=== PATIENT | female | born 1945 | race Caucasian/White ===

== ENCOUNTER 2017-11-05 05:50 | Day surgery (SDC) | payer MEDICARE, MEDICAID ==
[2017-11-04 11:44] LABS: BASOPHILS % (AUTO) 0.3 % (0-1); EOSINOPHILS # (AUTO) 0.3 X10'3 (0-0.9); EOSINOPHILS % (AUTO) 3.6 % (0-6); LYMPHOCYTES # (AUTO) 1.2 X10'3 (1.1-4.8); LYMPHOCYTES % (AUTO) 17.1 % (21-51); MEAN CORPUSCULAR HEMOGLOBIN 31.9 PG (27.0-31.0); MEAN CORPUSCULAR HGB CONC 34.1 % (33.0-36.5); MEAN CORPUSCULAR VOLUME 93.6 FL (78-98); MEAN PLATELET VOLUME 10.5 FL (7.4-10.4); MONOCYTES # (AUTO) 0.4 X10'3 (0-0.9); MONOCYTES % (AUTO) 6.1 % (2-12); NEUTROPHILS # (AUTO) 5.1 X10'3 (1.8-7.7); NEUTROPHILS % (AUTO) 72.9 % (42-75); PRE OP HEMATOCRIT 40.2 % (35.0-45.0); PRE OP HEMOGLOBIN 13.7 g/dL (12.0-16.0); PRE OP PLATELET COUNT 158 X10'3 (140-440); RED CELL DISTRIBUTION WIDTH 13.1 % (11.5-14.5)
[2017-11-04 11:57] LABS: ALBUMIN 3.5 G/DL (3.4-5.0); ALKALINE PHOSPHATASE 70 IU/L (46-116); BLOOD UREA NITROGEN 26 MG/DL (7-18); CALCIUM 9.4 MG/DL (8.5-10.1); CHLORIDE 106 MMOL/L (99-107); CREATININE 0.93 MG/DL (0.40-0.90); PRE OP ALT 20 U/L (30-65); PRE OP ANION GAP 8 (8-16); PRE OP AST 14 U/L (10-37); PRE OP BILIRUB, TOTAL 0.5 MG/DL (0.0-1.0); PRE OP GLUCOSE 87 MG/DL (70-104); PRE OP POTASSIUM 4.2 MMOL/L (3.4-5.1); PRE OP SODIUM 141 MMOL/L (135-145); TOTAL CARBON DIOXIDE 26.6 MMOL/L (24-32); eGFR 59 ML/MIN
[2017-11-04 12:01] LABS: CLARITY,URINE CLEAR (Clear); COLOR,URINE YELLOW (Yellow); GLUCOSE, URINE NEGATIVE (Neg); KETONES,URINE NEGATIVE (Neg); LEUKOCYTE ESTERASE ,URINE NEGATIVE (Neg); NITRITES, URINE NEGATIVE (Neg); OCCULT BLOOD,URINE NEGATIVE (Neg); PH,URINE 5.5 (4.8-8.0); PROTEIN,URINE NEGATIVE (Neg); UROBILINOGEN,URINE 0.2 E.U/dL (0.2-1.0)
[2017-11-04 12:07] LABS: UA COLLECTION TYPE CLN CATCH MIDSTREAM
[~2017-11-05] VITALS: Ht 149.9 cm; Wt 76.8 kg
[2017-11-05] VITALS (8 sets, daily range): BP systolic 140–157; BP diastolic 70–89
[~2017-11-05 05:50] MED LIST: ACET-2119 PO; ASPI-529 PO; CARV6.253 PO; CELE-85 PO; CETI10TA18 PO; Cefazolin 2GM/50ML dext iso,osmotic IVPB IV ONE; DOCUMENT DATE & TIME OF BETA-BLOCKER PO ONE; ESOM20CA PO; FISH12002 PO; FURO20TA4 PO; GLUC-133 PO; LOSA50TA3 PO; MULT-933 PO; POTA20TA19 PO; PRAV40TA3 PO; PREG50CA PO; famotidine 20mg tablet PO ONE; ringers solution, lacted 1,000 ML IV SCH
[2017-11-05] MEDS ORDERED: ringers solution, lacted 1,000 ML IV SCH (09:09)
[2017-11-05] MEDS ORDERED: proCHLORperazine 10 MG/2 ml inj IV PRN (09:10)
[2017-11-05] MEDS ORDERED: morphine 4 MG/ML inj SYRINge IV PRN ×2 (09:10)
[2017-11-05] MEDS ORDERED: meperidine/PF 25mg/ml syringe IV PRN ×3 (09:10)
[2017-11-05] MEDS ORDERED: ondansetron/PF 4mg/2ml inj IV PRN (09:10)
[2017-11-05] MEDS ORDERED: ROPIVAcaine 0.5% (5mg/ml) 30ml vial ONE (09:51)
[2017-11-05] MEDS ORDERED: sevoflurane 250ml liquid IH ONE (10:02)
[2017-11-05] MEDS ORDERED: propofol inj 20 ML IV ONE (10:03)
[2017-11-05] MEDS ORDERED: fentaNYL/PF 50MCG/1 ML 2ML syringe ONE (10:03)
[2017-11-05] MEDS ORDERED: midazolam 2 mg/2 ml injection ONE (10:03)
[2017-11-05] MEDS ORDERED: dexamethasone sod phosphate 4mg/ml inj. ONE (10:20)
[2017-11-05] MEDS ORDERED: ondansetron/PF 4mg/2ml inj ONE (10:20)
[2017-11-05] MEDS ORDERED: HYDROcodone/acetaminophen 10/325mg tab PO ONE (11:40)
== END 2017-11-05 12:10 | disposition home or self-care (01) ==
LOC: PAS 05:50
PROVIDERS: ATTEND Surgery
DX: K64.8 Other hemorrhoids (principal); K64.4 Residual hemorrhoidal skin tags; I11.0 Hypertensive heart disease with heart failure; I50.9 Heart failure, unspecified; I20.8 Other forms of angina pectoris; G47.33 Obstructive sleep apnea (adult) (pediatric); E66.9 Obesity, unspecified; K21.9 Gastro-esophageal reflux disease without esophagitis; M19.90 Unspecified osteoarthritis, unspecified site; I48.91 Unspecified atrial fibrillation; Z91.048 Other nonmedicinal substance allergy status; Z72.89 Other problems related to lifestyle; Z88.3 Allergy status to other anti-infective agents; Z98.51 Tubal ligation status; Z68.34 Body mass index [BMI] 34.0-34.9, adult; Z90.49 Acquired absence of other specified parts of digestive tract; Z98.41 Cataract extraction status, right eye; Z98.42 Cataract extraction status, left eye; Z87.891 Personal history of nicotine dependence; Z88.5 Allergy status to narcotic agent; Z88.6 Allergy status to analgesic agent; Z79.82 Long term (current) use of aspirin; Z91.041 Radiographic dye allergy status; Z87.442 Personal history of urinary calculi; Z79.891 Long term (current) use of opiate analgesic; Z79.899 Other long term (current) drug therapy; Z88.8 Allergy status to other drugs, medicaments and biological substances; Z98.890 Other specified postprocedural states
CPT/HCPCS: 36415; 45990; 46260; 71046; 80053; 81003; 85025; 93005; A6224; A6449; J0690; J1100; J2250; J2405; J2704; J2795; J3010; J7120; 88304; A7000

== ENCOUNTER 2019-04-04 10:00 | Emergency (ER) | payer MEDICARE, MEDICAID ==
[~2019-04-04] VITALS: Ht 149.9 cm; Wt 79.0 kg
[~2019-04-04 10:00] MED LIST changes: -Cefazolin 2GM/50ML dext iso,osmotic IVPB IV ONE; -DOCUMENT DATE & TIME OF BETA-BLOCKER PO ONE; -famotidine 20mg tablet PO ONE; -ringers solution, lacted 1,000 ML IV SCH
--- NOTE | 2019-04-04 11:55 | NUR ---
patient attempted to walk wearing boot, extremely unsteady and great risk of falling PRIYANKA Horne informed changed to post op shoe and patient ambulated 100 feet with her cane well
[2019-04-04 12:18] VITALS: BP 119/65
== END 2019-04-04 13:28 | disposition home or self-care (01) ==
LOC: ER 10:01
DX: M79.672 Pain in left foot (principal); E78.00 Pure hypercholesterolemia, unspecified; I10 Essential (primary) hypertension; K21.9 Gastro-esophageal reflux disease without esophagitis; M19.90 Unspecified osteoarthritis, unspecified site; F10.99 Alcohol use, unspecified with unspecified alcohol-induced disorder; Z87.442 Personal history of urinary calculi; Z90.49 Acquired absence of other specified parts of digestive tract; Z98.51 Tubal ligation status; Z98.890 Other specified postprocedural states; Z88.8 Allergy status to other drugs, medicaments and biological substances; Z91.041 Radiographic dye allergy status; Z88.6 Allergy status to analgesic agent; Z88.5 Allergy status to narcotic agent; Z91.09 Other allergy status, other than to drugs and biological substances; Z79.82 Long term (current) use of aspirin; Z79.899 Other long term (current) drug therapy; Y90.9 Presence of alcohol in blood, level not specified
CPT/HCPCS: 73630; 99284

== ENCOUNTER 2019-06-29 12:00 | Day surgery (SDC) | payer MEDICARE, MEDICAID ==
[~2019-06-29] VITALS: Ht 149.9 cm; Wt 73.6 kg
[2019-06-29] VITALS (8 sets, daily range): BP systolic 72–157; BP diastolic 52–92
[~2019-06-29 12:00] MED LIST changes: -ASPI-529 PO; -CELE-85 PO; -GLUC-133 PO; +PRAV20TA4 PO; -PRAV40TA3 PO
[2019-06-29 12:37] LABS: BASOPHILS % (AUTO) 0.7 % (0-1); EOSINOPHILS # (AUTO) 0.2 X10'3 (0-0.9); EOSINOPHILS % (AUTO) 3.2 % (0-6); MEAN CORPUSCULAR HEMOGLOBIN 32.4 PG (27.0-31.0); MEAN CORPUSCULAR HGB CONC 33.9 g/dL (33.0-36.5); MEAN CORPUSCULAR VOLUME 95.5 FL (78-98); MEAN PLATELET VOLUME 9.7 FL (7.4-10.4); MONOCYTES # (AUTO) 0.5 X10'3 (0-0.9); MONOCYTES % (AUTO) 7.8 % (2-12); NEUTROPHILS # (AUTO) 4.4 X10'3 (1.8-7.7); NEUTROPHILS % (AUTO) 72.3 % (42-75); PRE OP HEMATOCRIT 40.1 % (35.0-45.0); PRE OP HEMOGLOBIN 13.6 g/dL (12.0-16.0); PRE OP PLATELET COUNT 182 X10'3 (140-440); RED CELL DISTRIBUTION WIDTH 13.4 % (11.5-14.5)
[2019-06-29] MEDS ORDERED: MIDAZolam 5mg/5ml vial ONE (12:44)
[2019-06-29] MEDS ORDERED: fentaNYL/PF 50MCG/1 ML 2ML syringe ONE (12:44)
[2019-06-29] MEDS ORDERED: glucagon, human recombinant 1mg kit ONE (12:45)
[2019-06-29] MEDS ORDERED: iohexol 300 MG/1 ML 50ml polymer ONE (12:45)
[2019-06-29] MEDS ORDERED: LIDOcaine Viscous 15ml cup ONE (12:45)
[2019-06-29 12:46] LABS: ALBUMIN 3.4 G/DL (3.4-5.0); ALBUMIN/GLOBULIN RATIO 0.9 (1.1-1.5); ALKALINE PHOSPHATASE 136 IU/L (46-116); BLOOD UREA NITROGEN 28 MG/DL (7-18); BUN/CREATININE RATIO 28.3 (6.6-38.0); CALCIUM 9.4 MG/DL (8.5-10.1); CHLORIDE 107 MMOL/L (99-107); CREATININE 0.99 MG/DL (0.40-0.90); PRE OP ALT 27 U/L (30-65); PRE OP ANION GAP 4 (8-16); PRE OP AST 25 U/L (10-37); PRE OP BILIRUB, TOTAL 0.7 MG/DL (0.0-1.0); PRE OP GLUCOSE 87 MG/DL (70-104); PRE OP SODIUM 143 MMOL/L (135-145); TOTAL CARBON DIOXIDE 32.1 MMOL/L (24-32); eGFR 55 ML/MIN
[2019-06-29] MEDS ORDERED: proCHLORperazine 10 MG/2 ml inj ONE (13:14)
== END 2019-06-29 15:16 | disposition home or self-care (01) ==
LOC: GI LAB 12:00
PROVIDERS: ATTEND Internal Medicine Gastroenterology
DX: K80.50 Calculus of bile duct without cholangitis or cholecystitis without obstruction (principal); K83.8 Other specified diseases of biliary tract
CPT/HCPCS: 36415; 43264; 43275; 80053; 85025; 85610; 99153; C1726; C1769; G0500; J0780; J1610; J2250; J3010; J7040; Q9967; 43277; 99152; A4620

== ENCOUNTER 2019-12-02 10:01 | Day surgery (SDC) | payer MEDICARE, MEDICAID ==
[2019-12-01 15:13] LABS: BASOPHILS % (AUTO) 0.1 % (0-1); EOSINOPHILS % (AUTO) 0.1 % (0-6); HEMATOCRIT 41.2 % (35.0-45.0); HEMOGLOBIN 14.2 g/dl (12.0-16.0); LYMPHOCYTES # (AUTO) 0.7 X10'3 (1.1-4.8); LYMPHOCYTES % (AUTO) 6.7 % (21-51); MEAN CORPUSCULAR HGB CONC 34.4 g/dL (33.0-36.5); MEAN PLATELET VOLUME 8.9 FL (7.4-10.4); MONOCYTES # (AUTO) 0.2 X10'3 (0-0.9); MONOCYTES % (AUTO) 2.1 % (2-12); NEUTROPHILS # (AUTO) 9.6 X10'3 (1.8-7.7); PLATELET COUNT 199 X10'3 (140-440); RED BLOOD COUNT 4.29 X10'6 (4.20-5.60); RED CELL DISTRIBUTION WIDTH 13.2 % (11.5-14.5); WHITE BLOOD COUNT 10.5 X10'3 (4.5-11.0)
[2019-12-01 15:19] LABS: ANION GAP 9 (8-16); BLOOD UREA NITROGEN 23 MG/DL (7-18); BUN/CREATININE RATIO 21.1 (6.6-38.0); CHLORIDE 103 MMOL/L (99-107); CREATININE 1.09 MG/DL (0.40-0.90); GLUCOSE 106 MG/DL (70-104); POTASSIUM 4.2 MMOL/L (3.5-5.1); SODIUM 139 MMOL/L (135-145); TOTAL CARBON DIOXIDE 26.9 MMOL/L (24-32); eGFR 49 ML/MIN
[2019-12-01 15:23] LABS: PARTIAL THROMBOPLASTIN TIME 25 SECONDS (22-32)
[2019-12-02] VITALS (11 sets, daily range): BP systolic 119–169; BP diastolic 59–95
[~2019-12-02] VITALS: Ht 149.9 cm; Wt 89.7 kg
[2019-12-02] MEDS ORDERED: sodium bicarbonate (8.4%) inj. 150 ML in dextrose 5%-water 1,000 ML IV ONE (10:15)
[2019-12-02] MEDS ORDERED: LORazepam 0.5 MG tablet PO PRN (10:15)
[2019-12-02] MEDS ORDERED: LIDOcaine/PRILOcaine 5gm cream TP ONE (10:15)
[2019-12-02] MEDS ORDERED: diphenhydrAMINE 25mg capsule PO PRN (10:15)
[2019-12-02] MEDS ORDERED: PRED10TA23 PO (10:28)
[2019-12-02] MEDS ORDERED: [UNRECOGNIZED DRUG - CODE] PO (10:39)
[2019-12-02] MEDS ORDERED: GLUC-95 PO (10:39)
[2019-12-02] MEDS ORDERED: OMEP40CA13 PO (10:39)
[2019-12-02] MEDS ORDERED: DIPH25CA83 PO (10:39)
[2019-12-02] MEDS ORDERED: PREG50CA PO (11:25)
[2019-12-02] MEDS ORDERED: nitroGLYCERIN-Tridil 50MG/D5W 250 ML IV ONE (13:36)
[2019-12-02] MEDS ORDERED: verapamil 2.5 mg/ml inj IV ONE (13:36)
[2019-12-02] MEDS ORDERED: iohexol 350MG/ML 100ml bottle IV ONE (13:37)
[2019-12-02] MEDS ORDERED: fentaNYL/PF 50MCG/1 ML 2ML syringe ONE (13:37)
[2019-12-02] MEDS ORDERED: midazolam 2 mg/2 ml injection ONE (13:37)
[2019-12-02] MEDS ORDERED: heparin 1,000unit/ml 10ml vial 10 ML ONE (13:37)
[2019-12-02] MEDS ORDERED: LIDOcaine 1% (10mg/ml)w/preservative injection 20ml MDV ONE (13:37)
[2019-12-02] MEDS ORDERED: iohexol 350 MG/ML 50ML vial IV ONE (13:37)
[2019-12-02] MEDS ORDERED: hydrocortisone sod succ/PF 100mg/2ml inj. ONE (15:03)
[2019-12-02] MEDS ORDERED: HYDROcodone/acetaminophen 5mg/325mg tablet PO PRN (15:55)
[2019-12-02] MEDS ORDERED: HYDROcodone/acetaminophen 10/325mg tab PO PRN (15:55)
[2019-12-02] MEDS ORDERED: normal saline 1000ml 1,000 ML IV SCH (15:55)
== END 2019-12-02 19:55 | disposition home or self-care (01) ==
LOC: SSTAY O 10:01
PROVIDERS: ATTEND Internal Medicine Cardiovascular Disease
DX: R94.39 Abnormal result of other cardiovascular function study (principal); I25.10 Atherosclerotic heart disease of native coronary artery without angina pectoris; I11.0 Hypertensive heart disease with heart failure; I50.30 Unspecified diastolic (congestive) heart failure; I47.1 Supraventricular tachycardia; G47.30 Sleep apnea, unspecified; K21.9 Gastro-esophageal reflux disease without esophagitis; M19.90 Unspecified osteoarthritis, unspecified site; I34.0 Nonrheumatic mitral (valve) insufficiency; E78.49 Other hyperlipidemia; E66.9 Obesity, unspecified; Z68.36 Body mass index [BMI] 36.0-36.9, adult; Z79.899 Other long term (current) drug therapy; Z87.442 Personal history of urinary calculi; Z98.890 Other specified postprocedural states; Z96.659 Presence of unspecified artificial knee joint; Z90.49 Acquired absence of other specified parts of digestive tract; Z98.49 Cataract extraction status, unspecified eye; Z87.891 Personal history of nicotine dependence; Z88.8 Allergy status to other drugs, medicaments and biological substances; Z88.5 Allergy status to narcotic agent
CPT/HCPCS: 36415; 76937; 80048; 85025; 85610; 85730; 93005; 93460; 99152; 99153; C1769; C1894; J1644; J1720; J2001; J2250; J3010; Q0163; Q9967; A4620; A5120; A6258; C1751; J3490

== ENCOUNTER 2020-06-17 06:56 | Inpatient (IN) | payer MEDICARE, MEDICAID ==
[2020-06-10 11:58] LABS: BASOPHILS # (AUTO) 0.1 X10'3 (0-0.2); BASOPHILS % (AUTO) 1.3 % (0-1); EOSINOPHILS # (AUTO) 0.1 X10'3 (0-0.9); LYMPHOCYTES # (AUTO) 0.8 X10'3 (1.1-4.8); LYMPHOCYTES % (AUTO) 11.1 % (21-51); MEAN CORPUSCULAR HEMOGLOBIN 34.2 PG (27.0-31.0); MEAN CORPUSCULAR HGB CONC 34.6 g/dL (33.0-36.5); MEAN CORPUSCULAR VOLUME 98.7 FL (78-98); MEAN PLATELET VOLUME 8.9 FL (7.4-10.4); MONOCYTES # (AUTO) 0.5 X10'3 (0-0.9); MONOCYTES % (AUTO) 6.6 % (2-12); NEUTROPHILS # (AUTO) 5.7 X10'3 (1.8-7.7); PRE OP HEMATOCRIT 36.3 % (35.0-45.0); PRE OP HEMOGLOBIN 12.6 g/dL (12.0-16.0); PRE OP PLATELET COUNT 151 X10'3 (140-440); RED BLOOD COUNT 3.68 X10'6 (4.20-5.60); RED CELL DISTRIBUTION WIDTH 13.6 % (11.5-14.5)
[2020-06-10 12:10] LABS: ALBUMIN 3.6 G/DL (3.4-5.0); ALKALINE PHOSPHATASE 130 IU/L (46-116); BLOOD UREA NITROGEN 21 MG/DL (7-18); CALCIUM 9.5 MG/DL (8.5-10.1); CHLORIDE 108 MMOL/L (99-107); PRE OP ALT 21 U/L (30-65); PRE OP ANION GAP 9 (8-16); PRE OP AST 18 U/L (10-37); PRE OP BILIRUB, TOTAL 0.9 MG/DL (0.0-1.0); PRE OP GLUCOSE 94 MG/DL (70-104); PRE OP POTASSIUM 3.8 MMOL/L (3.4-5.1); PRE OP SODIUM 146 MMOL/L (135-145); TOTAL CARBON DIOXIDE 29.3 MMOL/L (24-32); TOTAL PROTEIN 7.2 G/DL (6.4-8.2); eGFR 54 ML/MIN
[2020-06-17] VITALS (19 sets, daily range): BP systolic 101–141; BP diastolic 46–89
[~2020-06-17] VITALS: Ht 149.9 cm; Wt 86.6 kg
[~2020-06-17 06:56] MED LIST changes: -ACET-2119 PO; +ASPI-1265 PO; +BIMA2.5D OP; +DIPH25CA83 PO; +DOCUMENT DATE & TIME OF BETA-BLOCKER PO ONE; -ESOM20CA PO; +EVOL140P3 SUBCUT; -FISH12002 PO; +GLUC-95 PO; +OMEP40CA13 PO; +[UNRECOGNIZED DRUG - CODE] PO; +cefazolin/dext.iso 2gm/100ml 100 ML IV ONE; +famotidine 20mg tablet PO ONE; +ringers solution, lacted 1,000 ML IV SCH
[2020-06-17] MEDS ORDERED: BUPIVAcaine 0.5% inj/PF 30 ML ONE (08:19)
[2020-06-17] MEDS ORDERED: ROPIVAcaine 0.5% (5mg/ml) 30ml vial ONE (08:19)
[2020-06-17] MEDS ORDERED: BUPIVACAINE liposomal/PF 13.3 MG/ML vial IM ONE (08:20)
[2020-06-17] MEDS ORDERED: scopolamine 1.5mg patch.TD72 TD ONE (09:50)
[2020-06-17] MEDS ORDERED: fentaNYL/PF 50MCG/1 ML 2ML syringe ONE (09:56)
[2020-06-17] MEDS ORDERED: midazolam 1 mg/ML 2ml injection ONE (09:57)
[2020-06-17] MEDS ORDERED: LIDOcaine 2% (20mg/ml) 5ml vial ONE (09:57)
[2020-06-17] MEDS ORDERED: propofol inj 20 ML IV ONE (09:57)
[2020-06-17] MEDS ORDERED: rocuronium 10mg/ml inj IV ONE (09:57)
[2020-06-17] MEDS ORDERED: sevoflurane 250ml liquid IH ONE (10:01)
[2020-06-17] MEDS ORDERED: dexamethasone sod phosphate 10mg/ml inj ONE (10:01)
[2020-06-17] MEDS ORDERED: acetaminophen 1,000mg/100ml IV 100 ML IV ONE (11:00)
[2020-06-17] MEDS ORDERED: ondansetron/PF 4mg/2ml inj ONE (11:04)
[2020-06-17] MEDS ORDERED: proMETHazine 25mg rectal suppository RC PRN (11:25)
[2020-06-17] MEDS ORDERED: hydrALAZINE 20mg/ml inj. IV PRN (11:25)
[2020-06-17] MEDS ORDERED: fentaNYL/PF 50MCG/1 ML 2ML syringe IV PRN ×2 (11:25)
[2020-06-17] MEDS ORDERED: enalaprilat dihydrate 2.5mg/2ml vial IV PRN (11:25)
[2020-06-17] MEDS ORDERED: ondansetron/PF 4mg/2ml inj IV PRN ×3 (11:25→13:55)
[2020-06-17] MEDS ORDERED: ringers solution, lacted 1,000 ML IV SCH (11:25)
[2020-06-17] MEDS ORDERED: proCHLORperazine 10 MG/2 ml inj IV PRN (11:25)
[2020-06-17] MEDS ORDERED: ROPIVAcaine 0.2% (10 MG/5 ML) BOLUS INJECTION POPLITEAL PRN (11:25)
[2020-06-17] MEDS ORDERED: HYDROmorphone/PF 0.2 MG/ML SYRINGE IV PRN ×2 (11:25)
[2020-06-17] MEDS ORDERED: hydrALAZINE 20mg/ml inj. IV ONE (12:26)
[2020-06-17] MEDS ORDERED: bacitracin 15gm ointment TP ONE (12:47)
--- NOTE | 2020-06-17 13:02 | NUR ---
Received from OR via , accompanied by Anesthesiologist DR WINN and report given by Anesthesiolgist. AWAKENS TO VOICE. VITALS STABLE. DRESSING DI. SUKHJINDER PAIN. TOES COOL AND PINK.
[2020-06-17] MEDS: ROPIVAcaine 0.2%/PF PUMP/bolus 545 ML POPLITEAL SCH (13:15)
[2020-06-17] MEDS ORDERED: mag hydrox/Alum hydrox/simeth 30ml oral suspension PO PRN (13:55)
[2020-06-17] MEDS ORDERED: morphine 2 MG/ML inj. syringe IV PRN (13:55)
[2020-06-17] MEDS ORDERED: acetaminophen 325mg tablet PO PRN (13:55)
[2020-06-17] MEDS ORDERED: loratadine 10mg tablet PO PRN (13:55)
[2020-06-17] MEDS ORDERED: magnesium hydroxide 30ml (MOM) UD suspension PO PRN (13:55)
--- NOTE | 2020-06-17 14:32 | NUR ---
received report from Spike in RR. Await pt arrive to floor
--- NOTE | 2020-06-17 14:32 | NUR ---
Report called to receiving nurse. Transferred via BED Belongings . Special Issues communicated to receiving nurse. AWAKE AND ORIENTED. VITALS STABLE. DRESSING DI. SUKHJINDER PAIN. TO ORTHO RM [id number] AT THIS TIME.
[2020-06-17] MEDS: HYDROcodone/acetaminophen 10/325mg tab PO PRN (17:21)
[2020-06-17] MEDS: ceFAZolin inj. 1,000 MG in dextrose 5%-water 50ml 50 ML IV SCH (17:21)
[2020-06-17] MEDS: carvedilol 6.25mg tablet PO SCH (20:00)
[2020-06-17] MEDS: diphenhydrAMINE 25mg capsule PO SCH (20:00)
[2020-06-17] MEDS ORDERED: non-formulary drug (Glucosamine HCl/Chondr Su A Na (Cidaflex Tablet) 1 TAB) PO SCH (20:00)
[2020-06-17] MEDS: pravastatin 40mg tablet PO SCH (20:40)
[2020-06-17] MEDS: latanoprost 0.005% 2.5ml ophthalmic drops EACHEYE SCH (20:41)
[2020-06-17] MEDS: losartan 50mg tablet PO SCH (20:45)
[2020-06-18] MEDS: ceFAZolin inj. 1,000 MG in dextrose 5%-water 50ml 50 ML IV SCH (00:21)
[2020-06-18 02:00] VITALS: BP 114/54
[2020-06-18] MEDS: HYDROcodone/acetaminophen 10/325mg tab PO PRN ×5 (02:44→23:35)
[2020-06-18 06:00] VITALS: BP 113/49
--- NOTE | 2020-06-18 06:15 | NUR ---
Problems reprioritized. Patient report given, questions answered & plan of care reviewed with KIESHA Zhao.
[2020-06-18] MEDS: pantoprazole 40mg Tablet.DR PO SCH (07:01)
[2020-06-18] MEDS: carvedilol 6.25mg tablet PO SCH ×2 (08:00→20:00)
[2020-06-18] MEDS: diphenhydrAMINE 25mg capsule PO SCH ×2 (08:00→20:34)
[2020-06-18] MEDS: furosemide 20MG tablet PO SCH (08:00)
[2020-06-18] MEDS: potassium chloride 10mEq ER tablet PO SCH (08:07)
[2020-06-18] MEDS: aspirin 81mg tab.chew PO SCH (08:07)
[2020-06-18] MEDS: multivitamins, therapeutics tablet PO SCH (08:07)
[2020-06-18] MEDS: pregabalin 25mg capsule PO SCH (08:07)
[2020-06-18 10:00] VITALS: BP 117/47
[2020-06-18 13:57] VITALS: BP 119/56
[2020-06-18 18:00] VITALS: BP 99/44
[2020-06-18] MEDS: latanoprost 0.005% 2.5ml ophthalmic drops EACHEYE SCH (20:35)
[2020-06-18] MEDS: pravastatin 40mg tablet PO SCH (20:35)
[2020-06-18] MEDS: losartan 50mg tablet PO SCH (20:44)
[2020-06-18 22:00] VITALS: BP 116/40
[2020-06-19] MEDS: HYDROcodone/acetaminophen 10/325mg tab PO PRN ×3 (03:33→11:23)
[2020-06-19 06:00] VITALS: BP 111/62
--- NOTE | 2020-06-19 06:14 | NUR ---
Problems reprioritized. Patient report given, questions answered & plan of care reviewed with KIESHA Hunt.
[2020-06-19] MEDS: aspirin 81mg tab.chew PO SCH (07:14)
[2020-06-19] MEDS: pantoprazole 40mg Tablet.DR PO SCH (07:14)
[2020-06-19] MEDS: potassium chloride 10mEq ER tablet PO SCH (07:15)
[2020-06-19] MEDS: pregabalin 25mg capsule PO SCH (07:15)
[2020-06-19] MEDS: multivitamins, therapeutics tablet PO SCH (07:15)
[2020-06-19] MEDS: furosemide 20MG tablet PO SCH (07:16)
[2020-06-19] MEDS: carvedilol 6.25mg tablet PO SCH ×2 (07:16→20:26)
[2020-06-19] MEDS: diphenhydrAMINE 25mg capsule PO SCH ×2 (07:19→20:25)
[2020-06-19 10:00] VITALS: BP 132/65
[2020-06-19] MEDS: ROPIVAcaine 0.2%/PF PUMP/bolus 545 ML POPLITEAL SCH (10:09)
[2020-06-19 10:31] LABS: BASOPHILS % (AUTO) 0.1 % (0-1); EOSINOPHILS # (AUTO) 0.1 X10'3 (0-0.9); EOSINOPHILS % (AUTO) 0.6 % (0-6); HEMATOCRIT 29.8 % (35.0-45.0); HEMOGLOBIN 10.2 g/dl (12.0-16.0); LYMPHOCYTES # (AUTO) 0.6 X10'3 (1.1-4.8); LYMPHOCYTES % (AUTO) 7.1 % (21-51); MEAN CORPUSCULAR HEMOGLOBIN 34.5 PG (27.0-31.0); MEAN CORPUSCULAR HGB CONC 34.2 g/dL (33.0-36.5); MEAN CORPUSCULAR VOLUME 101.1 FL (78-98); MEAN PLATELET VOLUME 8.9 FL (7.4-10.4); MONOCYTES # (AUTO) 0.7 X10'3 (0-0.9); MONOCYTES % (AUTO) 8.7 % (2-12); NEUTROPHILS % (AUTO) 83.5 % (42-75); PLATELET COUNT 108 X10'3 (140-440); RED BLOOD COUNT 2.95 X10'6 (4.20-5.60); RED CELL DISTRIBUTION WIDTH 13.6 % (11.5-14.5); WHITE BLOOD COUNT 8.3 X10'3 (4.5-11.0)
[2020-06-19 10:49] LABS: ALANINE AMINOTRANSFERASE 11 U/L (12-78); ALBUMIN 2.8 G/DL (3.4-5.0); ALBUMIN/GLOBULIN RATIO 0.9 (1.1-1.5); ALKALINE PHOSPHATASE 101 IU/L (46-116); ANION GAP 11 (8-16); ASPARTATE AMINO TRANSFERASE 20 U/L (10-37); BILIRUBIN,TOTAL 0.7 MG/DL (0.1-1.0); BLOOD UREA NITROGEN 17 MG/DL (7-18); BUN/CREATININE RATIO 19.5 (6.6-38.0); CHLORIDE 105 MMOL/L (99-107); CREATININE 0.87 MG/DL (0.40-0.90); GLUCOSE 120 MG/DL (70-104); POTASSIUM 3.5 MMOL/L (3.5-5.1); SODIUM 143 MMOL/L (135-145); TOTAL CARBON DIOXIDE 26.7 MMOL/L (24-32); eGFR 63 ML/MIN
[2020-06-19 18:01] VITALS: BP 122/70
--- NOTE | 2020-06-19 18:21 | NUR ---
GAVE REPORT TO KIESHA RODRIGUEZ
[2020-06-19] MEDS: pravastatin 40mg tablet PO SCH (20:27)
[2020-06-19] MEDS: losartan 50mg tablet PO SCH (20:28)
[2020-06-19] MEDS: latanoprost 0.005% 2.5ml ophthalmic drops EACHEYE SCH (20:29)
--- NOTE | 2020-06-20 06:35 | NUR ---
report given to kunal Vega.
--- NOTE | 2020-06-20 06:39 | NUR ---
Patient in room ORTHO 4024. I have received report from Lashaun POP and had the opportunity to ask questions and assume patient care.
--- NOTE | 2020-06-20 06:47 | NUR ---
Patient in room ORTHO 4024. I have received report from KIESHA Vicente and had the opportunity to ask questions and assume patient care.
[2020-06-20 07:00] VITALS: BP 148/66
[2020-06-20] MEDS: furosemide 20MG tablet PO SCH (07:30)
[2020-06-20] MEDS: pregabalin 25mg capsule PO SCH (07:30)
[2020-06-20] MEDS: potassium chloride 10mEq ER tablet PO SCH (07:30)
[2020-06-20] MEDS: carvedilol 6.25mg tablet PO SCH ×2 (07:30→19:15)
[2020-06-20] MEDS: aspirin 81mg tab.chew PO SCH (07:30)
[2020-06-20] MEDS: pantoprazole 40mg Tablet.DR PO SCH (07:30)
[2020-06-20] MEDS: multivitamins, therapeutics tablet PO SCH (07:31)
[2020-06-20] MEDS: diphenhydrAMINE 25mg capsule PO SCH ×2 (07:43→19:15)
[2020-06-20 18:00] VITALS: BP 139/67
--- NOTE | 2020-06-20 18:15 | NUR ---
cast in tact, distal portion of the dressing has serosang drainage, small amount. capillary refill is brisk to left foot and foot warm to touch. seen by Dr. Morris. no new orders. pt states pain is being controlled with on-q pain bulb. pt was incontinent today x2. worked with pt, see pt notes. appeared to have decreased appetite. temperature this am at 0600 was 100.1, afebrile remainder of shift. pt is for discharge in am to [facility]. orders signed and it chart to Dr. Morris.
--- NOTE | 2020-06-20 18:44 | NUR ---
Problems reprioritized. Patient report given, questions answered & plan of care reviewed with Ghislaine POP.
[2020-06-20] MEDS: losartan 50mg tablet PO SCH (19:15)
[2020-06-20] MEDS: pravastatin 40mg tablet PO SCH (19:15)
[2020-06-20] MEDS: latanoprost 0.005% 2.5ml ophthalmic drops EACHEYE SCH (19:15)
[2020-06-20] MEDS: HYDROcodone/acetaminophen 10/325mg tab PO PRN (19:16)
[2020-06-20 22:41] VITALS: BP 96/53
[2020-06-21 06:00] VITALS: BP 120/57
[2020-06-21 06:04] LABS: ANION GAP 9 (8-16); CHLORIDE 105 MMOL/L (99-107); POTASSIUM 3.2 MMOL/L (3.5-5.1); SODIUM 142 MMOL/L (135-145); TOTAL CARBON DIOXIDE 27.8 MMOL/L (24-32)
[2020-06-21 06:07] LABS: BASOPHILS % (AUTO) 0.2 % (0-1); EOSINOPHILS # (AUTO) 0.1 X10'3 (0-0.9); EOSINOPHILS % (AUTO) 0.9 % (0-6); HEMATOCRIT 28.2 % (35.0-45.0); HEMOGLOBIN 9.8 g/dl (12.0-16.0); LYMPHOCYTES # (AUTO) 0.6 X10'3 (1.1-4.8); LYMPHOCYTES % (AUTO) 6.8 % (21-51); MEAN CORPUSCULAR HEMOGLOBIN 34.4 PG (27.0-31.0); MEAN CORPUSCULAR HGB CONC 34.7 g/dL (33.0-36.5); MEAN CORPUSCULAR VOLUME 99.2 FL (78-98); MONOCYTES # (AUTO) 0.7 X10'3 (0-0.9); MONOCYTES % (AUTO) 8.2 % (2-12); NEUTROPHILS # (AUTO) 7.4 X10'3 (1.8-7.7); NEUTROPHILS % (AUTO) 83.9 % (42-75); PLATELET COUNT 110 X10'3 (140-440); RED BLOOD COUNT 2.84 X10'6 (4.20-5.60); RED CELL DISTRIBUTION WIDTH 13.2 % (11.5-14.5); WHITE BLOOD COUNT 8.8 X10'3 (4.5-11.0)
--- NOTE | 2020-06-21 06:20 | NUR ---
received report from kunal rich
[2020-06-21] MEDS ORDERED: potassium Cl 40MEQ/1/2NS 520ml 520 ML IV PRN ×2 (06:50)
[2020-06-21] MEDS ORDERED: potassium Cl 20 mEq SR tablet PO PRN ×2 (06:50)
[2020-06-21] MEDS: diphenhydrAMINE 25mg capsule PO SCH (08:00)
[2020-06-21] MEDS: HYDROcodone/acetaminophen 10/325mg tab PO PRN ×2 (08:01→12:59)
[2020-06-21] MEDS: potassium chloride 10mEq ER tablet PO SCH (08:01)
[2020-06-21] MEDS: pantoprazole 40mg Tablet.DR PO SCH (08:02)
[2020-06-21] MEDS: multivitamins, therapeutics tablet PO SCH (08:02)
[2020-06-21] MEDS: furosemide 20MG tablet PO SCH (08:02)
[2020-06-21] MEDS: pregabalin 25mg capsule PO SCH (08:03)
[2020-06-21] MEDS: aspirin 81mg tab.chew PO SCH (08:03)
[2020-06-21] MEDS: carvedilol 6.25mg tablet PO SCH (08:03)
[2020-06-21 09:43] VITALS: BP 114/59
--- NOTE | 2020-06-21 11:13 | NUR ---
gave report to kunal mariscal at [facility]
[2020-06-21] MEDS: ROPIVAcaine 0.2%/PF PUMP/bolus 545 ML POPLITEAL SCH (11:25)
--- NOTE | 2020-06-21 13:14 | NUR ---
pt d/c with all belongings on hay accompanied by [facility] personnel to go to [facility] and f/u w/surgeon
[2020-06-24] MEDS ORDERED: EVOLOCUMAB 140 MG/ML SQ SCH (08:00)
== END 2020-06-21 13:10 | DRG 494 ==
LOC: PAS 06:56 → ORTHO 4S 13:53
PROVIDERS: ADMIT Podiatrist Foot & Ankle Surgery; ATTEND Podiatrist Foot & Ankle Surgery
PROC: 0QBH0ZZ Excision of Left Tibia, Open Approach (ICD-10-PCS; 2020-06-17)
PROC: 0SGJ07Z Fusion of Left Tarsal Joint with Autologous Tissue Substitute, Open Approach (ICD-10-PCS; 2020-06-17)
PROC: 0SGJ07Z Fusion of Left Tarsal Joint with Autologous Tissue Substitute, Open Approach (ICD-10-PCS; 2020-06-17)
PROC: 0SGJ07Z Fusion of Left Tarsal Joint with Autologous Tissue Substitute, Open Approach (ICD-10-PCS; 2020-06-17)
PROC: 5A09357 Assistance with Respiratory Ventilation, Less than 24 Consecutive Hours, Continuous Positive Airway Pressure (ICD-10-PCS; 2020-06-17)
PROC: 3E0T3BZ Introduction of Anesthetic Agent into Peripheral Nerves and Plexi, Percutaneous Approach (ICD-10-PCS; 2020-06-17)
PROC: 0L8P0ZZ Division of Left Lower Leg Tendon, Open Approach (ICD-10-PCS; principal; 2020-06-17 10:01)
PROC: 5A09357 Assistance with Respiratory Ventilation, Less than 24 Consecutive Hours, Continuous Positive Airway Pressure (ICD-10-PCS; 2020-06-21)
DX: M19.072 Primary osteoarthritis, left ankle and foot (principal); M21.42 Flat foot [pes planus] (acquired), left foot; M20.12 Hallux valgus (acquired), left foot; M25.472 Effusion, left ankle; I25.10 Atherosclerotic heart disease of native coronary artery without angina pectoris; I10 Essential (primary) hypertension; G47.30 Sleep apnea, unspecified; K21.9 Gastro-esophageal reflux disease without esophagitis; G62.9 Polyneuropathy, unspecified; E66.9 Obesity, unspecified; Z68.38 Body mass index [BMI] 38.0-38.9, adult
CPT/HCPCS: 36415; 73620; 76000; 80051; 80053; 82948; 85025; 93005; 97110; 97112; 97116; 97161; 97530; 97542; A4618; A6223; A6253; A6449; A7000; C1713; C1762; C9290; G0378; J0131; J0360; J0690; J1100; J2001; J2250; J2405; J2704; J2795; J3010; J7060; J7120; Q0163; U0003

== ENCOUNTER 2024-02-04 15:39 | Emergency (ER) | payer MEDICARE, MEDICAID ==
[~2024-02-04] VITALS: Ht 152.4 cm; Wt 84.0 kg
[~2024-02-04 15:39] MED LIST changes: -CETI10TA18 PO; +CETI10TA19 PO; -DOCUMENT DATE & TIME OF BETA-BLOCKER PO ONE; +LOSA-416 PO; -LOSA50TA3 PO; -OMEP40CA13 PO; +OMEP40CA21 PO; +POTA-207 PO; -POTA20TA19 PO; -[UNRECOGNIZED DRUG - CODE] PO; -cefazolin/dext.iso 2gm/100ml 100 ML IV ONE; -famotidine 20mg tablet PO ONE; -ringers solution, lacted 1,000 ML IV SCH
[2024-02-04 15:44] VITALS: TEMP 97.5
[2024-02-04 18:34] LABS: BILIRUBIN,URINE NEGATIVE (Neg); CLARITY,URINE CLEAR (Clear); COLOR,URINE YELLOW (Yellow); GLUCOSE, URINE NEGATIVE (Neg); KETONES,URINE NEGATIVE (Neg); LEUKOCYTE ESTERASE ,URINE NEGATIVE (Neg); NITRITES, URINE NEGATIVE (Neg); OCCULT BLOOD,URINE NEGATIVE (Neg); PROTEIN,URINE NEGATIVE (Neg); UROBILINOGEN,URINE 0.2 E.U/dL (0.2-1.0)
[2024-02-04 18:37] LABS: UA COLLECTION TYPE CLN CATCH MIDSTREAM
[2024-02-04 19:03] LABS: BASOPHILS % (AUTO) 0.3 % (0-1); EOSINOPHILS # (AUTO) 0.1 X10'3 (0-0.9); HEMATOCRIT 30.6 % (35.0-45.0); HEMOGLOBIN 10.6 g/dl (12.0-16.0); LYMPHOCYTES # (AUTO) 0.7 X10'3 (1.1-4.8); LYMPHOCYTES % (AUTO) 18.2 % (21-51); MEAN CORPUSCULAR HEMOGLOBIN 38.1 PG (27.0-31.0); MEAN CORPUSCULAR HGB CONC 34.6 g/dL (33.0-36.5); MONOCYTES # (AUTO) 0.3 X10'3 (0-0.9); MONOCYTES % (AUTO) 7.9 % (2-12); NEUTROPHILS # (AUTO) 2.8 X10'3 (1.8-7.7); NEUTROPHILS % (AUTO) 71.6 % (42-75); PLATELET COUNT 112 X10'3 (140-440); RED BLOOD COUNT 2.78 X10'6 (4.20-5.60); RED CELL DISTRIBUTION WIDTH 13.9 % (11.5-14.5); WHITE BLOOD COUNT 3.9 X10'3 (4.5-11.0)
[2024-02-04 19:13] LABS: ALANINE AMINOTRANSFERASE 16 U/L (12-78); ALBUMIN 3.4 G/DL (3.4-5.0); ALBUMIN/GLOBULIN RATIO 1.1 (1.1-1.5); ALKALINE PHOSPHATASE 112 IU/L (46-116); ANION GAP 9 (8-16); ASPARTATE AMINO TRANSFERASE 15 U/L (10-37); BILIRUBIN,TOTAL 0.9 MG/DL (0.1-1.0); BLOOD UREA NITROGEN 23 MG/DL (7-18); BUN/CREATININE RATIO 21.5 (10.0-20.0); CALCIUM 9.4 MG/DL (8.5-10.1); CHLORIDE 108 MMOL/L (99-107); CREATININE 1.07 MG/DL (0.40-0.90); GLUCOSE 94 MG/DL (70-104); LIPASE 17 U/L (16-77); POTASSIUM 4.1 MMOL/L (3.5-5.1); SODIUM 143 MMOL/L (135-145); TOTAL CARBON DIOXIDE 25.8 MMOL/L (24-32); TOTAL PROTEIN 6.5 G/DL (6.4-8.2); eCRCL 30 ML/MIN; eGFR 49 ML/MIN
[2024-02-04] MEDS ORDERED: iohexol 300mg/ml 100ml inj. ONE (19:22)
[2024-02-04] MEDS ORDERED: LOPE2CAP PO (20:25)
[2024-02-04 20:58] VITALS: BP 182/75; PULSE 55; RESP 16; O2SAT 97
== END 2024-02-04 21:02 | disposition home or self-care (01) ==
LOC: ER 15:40
DX: D64.9 Anemia, unspecified (principal); E78.00 Pure hypercholesterolemia, unspecified; I10 Essential (primary) hypertension; K21.9 Gastro-esophageal reflux disease without esophagitis; M19.90 Unspecified osteoarthritis, unspecified site; K58.9 Irritable bowel syndrome, unspecified; F10.90 Alcohol use, unspecified, uncomplicated; R19.7 Diarrhea, unspecified; Z90.49 Acquired absence of other specified parts of digestive tract; Z98.51 Tubal ligation status; Z98.890 Other specified postprocedural states; Z88.5 Allergy status to narcotic agent; Z88.6 Allergy status to analgesic agent; Z88.8 Allergy status to other drugs, medicaments and biological substances; Z91.041 Radiographic dye allergy status; Z79.82 Long term (current) use of aspirin
CPT/HCPCS: 36415; 74022; 74176; 80053; 81003; 83690; 85025; 99285; Q9967

== ENCOUNTER 2024-05-21 15:02 | Inpatient (IN) | payer MEDICARE, MEDICAID ==
[~2024-05-21] VITALS: Ht 152.4 cm; Wt 81.3 kg
[~2024-05-21 15:02] MED LIST changes: +LOPE2CAP PO
[2024-05-21 15:42] LABS: BASOPHILS % (AUTO) 0.4 % (0-1); EOSINOPHILS # (AUTO) 0.1 X10'3 (0-0.9); EOSINOPHILS % (AUTO) 1.4 % (0-6); HEMATOCRIT 32.1 % (35.0-45.0); HEMOGLOBIN 11.1 g/dl (12.0-16.0); LYMPHOCYTES # (AUTO) 0.8 X10'3 (1.1-4.8); LYMPHOCYTES % (AUTO) 15.1 % (21-51); MEAN CORPUSCULAR HEMOGLOBIN 37.3 PG (27.0-31.0); MEAN CORPUSCULAR HGB CONC 34.5 g/dL (33.0-36.5); MEAN PLATELET VOLUME 8.9 FL (7.4-10.4); MONOCYTES # (AUTO) 0.3 X10'3 (0-0.9); MONOCYTES % (AUTO) 6.3 % (2-12); NEUTROPHILS # (AUTO) 3.9 X10'3 (1.8-7.7); NEUTROPHILS % (AUTO) 76.8 % (42-75); PLATELET COUNT 122 X10'3 (140-440); RED BLOOD COUNT 2.98 X10'6 (4.20-5.60); WHITE BLOOD COUNT 5.1 X10'3 (4.5-11.0)
[2024-05-21 16:03] LABS: ALANINE AMINOTRANSFERASE 17 U/L (12-78); ALBUMIN 3.4 G/DL (3.4-5.0); ALKALINE PHOSPHATASE 94 IU/L (46-116); ANION GAP 8 (8-16); ASPARTATE AMINO TRANSFERASE 12 U/L (10-37); BLOOD UREA NITROGEN 23 MG/DL (7-18); BUN/CREATININE RATIO 21.7 (10.0-20.0); CALCIUM 9.3 MG/DL (8.5-10.1); CHLORIDE 106 MMOL/L (99-107); CREATININE 1.06 MG/DL (0.40-0.90); GLUCOSE 90 MG/DL (70-104); POTASSIUM 3.6 MMOL/L (3.5-5.1); SODIUM 142 MMOL/L (135-145); TOTAL CARBON DIOXIDE 28.4 MMOL/L (24-32); TOTAL PROTEIN 6.8 G/DL (6.4-8.2); eCRCL 30 ML/MIN; eGFR 50 ML/MIN
[2024-05-21 16:12] LABS: PRO BRAIN NATRIURETIC PEPTIDE 297 PG/ML (0-450)
[2024-05-21 18:26] LABS: D-DIMER 2.83 MG/L FEU (0-0.50)
[2024-05-21] MEDS ORDERED: ondansetron/PF 4mg/2ml inj IV PRN (20:35)
[2024-05-21] MEDS ORDERED: mag hydrox/Alum hydrox/simeth 30ml oral suspension PO PRN (20:35)
[2024-05-21] MEDS ORDERED: potassium Cl 40MEQ/1/2NS 520ml 520 ML IV PRN (20:35)
[2024-05-21] MEDS ORDERED: magnesium Cl slow-release 64mg tablet PO PRN (20:35)
[2024-05-21] MEDS ORDERED: potassium Cl 20 mEq SR tablet PO PRN (20:35)
[2024-05-21] MEDS ORDERED: morphine 2 MG/ML inj. syringe IV PRN (20:35)
[2024-05-21] MEDS ORDERED: magnesium hydroxide 30ml (MOM) UD suspension PO PRN (20:35)
[2024-05-21] MEDS ORDERED: acetaminophen 325mg tablet PO PRN (20:35)
[2024-05-21] MEDS ORDERED: ipratropium/albuterol 3ml nebule NEB PRN (21:10)
[2024-05-21 21:12] LABS: HEMOGLOBIN A1C 4.6 % (4.5-6.2)
[2024-05-21] MEDS: losartan 25mg tablet PO ONE (21:12)
[2024-05-22] VITALS (7 sets, daily range): BP systolic 122–151; BP diastolic 54–74; PULSE 55–66; RESP 16–23; TEMP 96.9–98.3; O2SAT 95–99
[2024-05-22 03:30] LABS: BASOPHILS % (AUTO) 0.5 % (0-1); EOSINOPHILS # (AUTO) 0.1 X10'3 (0-0.9); EOSINOPHILS % (AUTO) 1.9 % (0-6); HEMATOCRIT 31.2 % (35.0-45.0); HEMOGLOBIN 10.7 g/dl (12.0-16.0); LYMPHOCYTES # (AUTO) 1.1 X10'3 (1.1-4.8); LYMPHOCYTES % (AUTO) 20.5 % (21-51); MEAN CORPUSCULAR HEMOGLOBIN 37.2 PG (27.0-31.0); MEAN CORPUSCULAR HGB CONC 34.5 g/dL (33.0-36.5); MEAN CORPUSCULAR VOLUME 107.9 FL (78-98); MEAN PLATELET VOLUME 9.3 FL (7.4-10.4); MONOCYTES # (AUTO) 0.5 X10'3 (0-0.9); MONOCYTES % (AUTO) 8.3 % (2-12); NEUTROPHILS # (AUTO) 3.8 X10'3 (1.8-7.7); NEUTROPHILS % (AUTO) 68.8 % (42-75); PLATELET COUNT 112 X10'3 (140-440); RED BLOOD COUNT 2.89 X10'6 (4.20-5.60); RED CELL DISTRIBUTION WIDTH 13.1 % (11.5-14.5); WHITE BLOOD COUNT 5.6 X10'3 (4.5-11.0)
[2024-05-22 03:48] LABS: ALANINE AMINOTRANSFERASE 10 U/L (12-78); ALBUMIN 3.3 G/DL (3.4-5.0); ALKALINE PHOSPHATASE 90 IU/L (46-116); ANION GAP 10 (8-16); ASPARTATE AMINO TRANSFERASE 15 U/L (10-37); BILIRUBIN,TOTAL 1.2 MG/DL (0.1-1.0); BLOOD UREA NITROGEN 20 MG/DL (7-18); BUN/CREATININE RATIO 19.2 (10.0-20.0); CALCIUM 9.8 MG/DL (8.5-10.1); CHLORIDE 106 MMOL/L (99-107); CHOL/HDL RATIO 4.3 (0.00-4.99); CHOLESTEROL 164 MG/DL (0-200); CREATININE 1.04 MG/DL (0.40-0.90); GLUCOSE 98 MG/DL (70-104); HDL CHOLESTEROL 38 MG/DL (35-60); LDL CHOLESTEROL 94 MG/DL (50-100); MAGNESIUM 1.3 MG/DL (1.5-2.4); SODIUM 142 MMOL/L (135-145); TOTAL CARBON DIOXIDE 25.9 MMOL/L (24-32); TOTAL PROTEIN 6.5 G/DL (6.4-8.2); TRIGLYCERIDES 255 MG/DL (20-135); eCRCL 31 ML/MIN; eGFR 51 ML/MIN
[2024-05-22] MEDS: potassium Cl 20 mEq SR tablet PO PRN (04:05)
[2024-05-22] MEDS: K and/or MAG REPLACEMENT MC SCH (08:00)
[2024-05-22] MEDS: docusate sod 100mg capsule PO SCH (08:00)
[2024-05-22] MEDS: furosemide 10 MG/1 ML 10ml inj IV SCH (08:31)
[2024-05-22] MEDS: losartan 50mg tablet PO SCH ×2 (08:32→19:54)
[2024-05-22] MEDS: carvedilol 6.25mg tablet PO SCH ×2 (08:32→19:54)
[2024-05-22] MEDS: heparin, porcine 5000 units/ml vial SQ SCH (08:33)
[2024-05-22] MEDS: aspirin 81mg, enteric-coated 1 TAB TABLET.DR PO ONE (08:33)
[2024-05-22] MEDS ORDERED: CELE-127 PO (08:44)
[2024-05-22] MEDS ORDERED: TIOT4MIS3 PO (08:44)
[2024-05-22] MEDS: magnesium sulf-water 2g/50mL 50 ML IV PRN (08:46)
[2024-05-22] MEDS: magnesium sulf-water 4G/100mL 100 ML IV PRN (11:16)
[2024-05-22] MEDS ORDERED: diphenhydrAMINE 25mg capsule PO PRN (15:10)
[2024-05-22] MEDS ORDERED: cetirizine 10mg tablet PO PRN (15:10)
[2024-05-22 19:49] LABS: MAGNESIUM 2.8 MG/DL (1.5-2.4); POTASSIUM 4.7 MMOL/L (3.5-5.1)
[2024-05-22] MEDS: celeCOXIB 100mg capsule PO SCH (19:53)
[2024-05-22] MEDS: isosorbide mononitrate 30mg tab.SR.24H PO SCH (19:53)
[2024-05-23 06:00] VITALS: BP 105/54; PULSE 65; RESP 17; TEMP 97.2; O2SAT 93
[2024-05-23 06:00] LABS: BASOPHILS % (AUTO) 0.5 % (0-1); EOSINOPHILS # (AUTO) 0.1 X10'3 (0-0.9); EOSINOPHILS % (AUTO) 2.4 % (0-6); HEMATOCRIT 28.5 % (35.0-45.0); HEMOGLOBIN 9.9 g/dl (12.0-16.0); LYMPHOCYTES # (AUTO) 0.8 X10'3 (1.1-4.8); LYMPHOCYTES % (AUTO) 18.8 % (21-51); MEAN CORPUSCULAR HGB CONC 34.7 g/dL (33.0-36.5); MEAN CORPUSCULAR VOLUME 109.5 FL (78-98); MEAN PLATELET VOLUME 9.5 FL (7.4-10.4); MONOCYTES # (AUTO) 0.4 X10'3 (0-0.9); MONOCYTES % (AUTO) 9.8 % (2-12); NEUTROPHILS % (AUTO) 68.5 % (42-75); PLATELET COUNT 113 X10'3 (140-440); RED CELL DISTRIBUTION WIDTH 13.5 % (11.5-14.5); WHITE BLOOD COUNT 4.4 X10'3 (4.5-11.0)
[2024-05-23 06:13] LABS: ALANINE AMINOTRANSFERASE 10 U/L (12-78); ALBUMIN 3.1 G/DL (3.4-5.0); ALKALINE PHOSPHATASE 85 IU/L (46-116); ANION GAP 9 (8-16); ASPARTATE AMINO TRANSFERASE 13 U/L (10-37); BILIRUBIN,TOTAL 1.1 MG/DL (0.1-1.0); BLOOD UREA NITROGEN 29 MG/DL (7-18); BUN/CREATININE RATIO 25.7 (10.0-20.0); CALCIUM 9.4 MG/DL (8.5-10.1); CHLORIDE 109 MMOL/L (99-107); CREATININE 1.13 MG/DL (0.40-0.90); GLUCOSE 114 MG/DL (70-104); MAGNESIUM 2.4 MG/DL (1.5-2.4); SODIUM 145 MMOL/L (135-145); TOTAL CARBON DIOXIDE 26.7 MMOL/L (24-32); TOTAL PROTEIN 6.3 G/DL (6.4-8.2); eCRCL 29 ML/MIN; eGFR 46 ML/MIN
[2024-05-23] MEDS: Tiotropium Br/Olodaterol HCl (Stiolto Respimat Inhal Spray) PO SCH (07:09)
[2024-05-23] MEDS ORDERED: ISOS30TA84 PO (08:08)
[2024-05-23 10:00] VITALS: BP 113/61; PULSE 63; RESP 16; TEMP 97.6; O2SAT 94
[2024-05-23] MEDS: pregabalin 25mg capsule PO SCH (10:00)
[2024-05-23] MEDS: aspirin 81mg tab.chew PO SCH (10:00)
[2024-05-23] MEDS: Pravastatin Sodium 20 MG TAB PO SCH (10:00)
[2024-05-23] MEDS: furosemide 20MG tablet PO SCH (10:00)
[2024-05-23] MEDS ORDERED: PRAV40TA3 PO (11:09)
[2024-05-23 11:38] VITALS: PULSE 69; RESP 18; O2SAT 98
== END 2024-05-23 15:10 | disposition home or self-care (01) | DRG 313 ==
LOC: ER 15:03 → ED HOLD 20:38 → ORTHO 4S 05-22 11:45
PROVIDERS: ADMIT Internal Medicine Pulmonary Disease; ATTEND Family Medicine
DX: R07.89 Other chest pain (principal); N17.0 Acute kidney failure with tubular necrosis; I50.32 Chronic diastolic (congestive) heart failure; E87.6 Hypokalemia; I11.0 Hypertensive heart disease with heart failure; E78.00 Pure hypercholesterolemia, unspecified; G62.9 Polyneuropathy, unspecified; I25.10 Atherosclerotic heart disease of native coronary artery without angina pectoris; Z96.653 Presence of artificial knee joint, bilateral; E83.42 Hypomagnesemia; G47.33 Obstructive sleep apnea (adult) (pediatric); E66.9 Obesity, unspecified; K21.9 Gastro-esophageal reflux disease without esophagitis; Z91.041 Radiographic dye allergy status; Z88.5 Allergy status to narcotic agent; Z87.891 Personal history of nicotine dependence; Z88.8 Allergy status to other drugs, medicaments and biological substances; Z91.09 Other allergy status, other than to drugs and biological substances; Z79.82 Long term (current) use of aspirin; Z79.899 Other long term (current) drug therapy; Z90.49 Acquired absence of other specified parts of digestive tract; Z68.35 Body mass index [BMI] 35.0-35.9, adult
CPT/HCPCS: 36415; 71045; 78582; 80053; 80061; 83036; 83735; 83880; 84132; 84484; 85025; 85379; 87081; 93005; 93306; 93970; 94660; 94760; 97110; 97116; 97161; 99285; A4615; A9539; A9540; G0378; J1644; J1940; J3475

== ENCOUNTER 2024-10-16 11:58 | Outpatient (CLI) | payer MEDICARE, MEDICAID ==
[~2024-10-16 11:58] MED LIST changes: -DIPH25CA83 PO; -EVOL140P3 SUBCUT; -GLUC-95 PO; -LOPE2CAP PO; -PRAV20TA4 PO; +PRAV40TA17 PO; +TIOT4MIS3 PO; +iohexol 300mg/ml 100ml inj. ONE
== END 2024-10-16 23:59 | disposition home or self-care (01) ==
LOC: RAD 11:58
PROVIDERS: ATTEND Family Medicine
DX: N28.89 Other specified disorders of kidney and ureter (principal); Z53.9 Procedure and treatment not carried out, unspecified reason
CPT/HCPCS: Q9967

== ENCOUNTER 2024-10-21 10:24 | Outpatient (CLI) | payer MEDICARE, MEDICAID ==
--- NOTE | 2024-10-21 13:11 | VASCULAR REPORT ---
CLINICAL HISTORY: Lower extremity edema TECHNIQUE: Color and duplex doppler imaging of the bilateral lower extremity veins was performed. Ves yany compression if possible was also performed. WID: COMPARISON: CT CT LOWER EXTREMITY on DOS: 06/03/24, VASC VL VENOUS on DOS: 05/22/24 FINDINGS: Right Lower Extremity: Right common femoral vein: Normal compressibility and flow. Right femoral vein: Normal compressibility and flow. Right popliteal vein: Normal compressibility and flow. Hypoechoic/mixed echogenicity occlusive thrombus in 1 of the 2 posterior tibial veins and 1 of the 2 peroneal veins . Left Lower Extremity: Left common femoral vein: Normal compressibility and flow. Left femoral vein: Normal compressibility and flow. Left popliteal vein: Normal compressibility and flow. Proximal calf veins are normally compressible. IMPRESSION: Positive for occlusive DVT in 1 of the 2 posterior tibial and peroneal veins. Acute to subacute appe aring No evidence of DVT in the left lower extremity Critical Result: Right lower extremity DVT Unable to reach the point of contact to give results, patient was taken to the emergency department p er the appliance mechanic. ..
== END 2024-10-21 23:59 | disposition home or self-care (01) ==
LOC: 64 CT 10:24
PROVIDERS: ATTEND Family Medicine
DX: I82.443 Acute embolism and thrombosis of tibial vein, bilateral (principal); I82.453 Acute embolism and thrombosis of peroneal vein, bilateral; R60.0 Localized edema
CPT/HCPCS: 93970; Q9967

== ENCOUNTER 2024-10-21 12:34 | Emergency (ER) | payer MEDICARE, MEDICAID ==
[~2024-10-21] VITALS: Ht 149.9 cm; Wt 70.7 kg
[~2024-10-21 12:34] MED LIST changes: -iohexol 300mg/ml 100ml inj. ONE
[2024-10-21 12:46] VITALS: BP 164/94; PULSE 75; RESP 14; TEMP 97.6; O2SAT 96
== END 2024-10-21 14:36 | disposition left against medical advice (07) ==
LOC: ER 12:35
DX: M79.604 Pain in right leg (principal); Z53.21 Procedure and treatment not carried out due to patient leaving prior to being seen by health care provider; Z88.8 Allergy status to other drugs, medicaments and biological substances; Z88.1 Allergy status to other antibiotic agents; Z88.5 Allergy status to narcotic agent

== ENCOUNTER 2024-10-23 07:51 | Outpatient (CLI) | payer MEDICARE, MEDICAID ==
[2024-10-23] MEDS ORDERED: iohexol 300mg/ml 100ml inj. ONE (08:06)
[2024-10-23 09:12] LABS: CREATININE 1.11 MG/DL (0.40-0.90); TOTAL CARBON DIOXIDE 25.9 MMOL/L (24-32); eGFR 47 ML/MIN
--- NOTE | 2024-10-23 11:16 | RADIOLOGY REPORT ---
Exam: CT CT ABDOMEN PELVIS W/ IV CONTRAST History: OTHER SPECIFIED DISORDERS OF KIDNEY AND URETER COMPARISON: DI ABDOMEN,SINGLE VIEW(KUB) on DOS: 06/04/24, CT CT ABDOMEN PELVIS on DOS: 02/04/24, DI AC RAMPART ABDOMEN on DOS: 02/04/24, CT ABDOMEN PELVIS on DOS: 09/23/20, ULTRASOUND OF ABDOMEN on DOS: 09/22/20 Technique: Multidetector spiral CT of the abdomen and pelvis was performed from lung bases to pubic s ymphysis. Intravenous contrast was administered during this examination. Noncontrast and portal venou s phase imaging was obtained. Axial, coronal and sagittal multiplanar reformats were performed by the technologist on a separate workstation. Radiation Dose : 1. Abdomen/Pelvis: CTDIvol 27mGy, DLP 2324 mGy*cm. Findings: Lung Bases: No acute or significant lung base finding. Normal heart size. No pleural or pericardial effusion. Liver: Hepatomegaly. Gallbladder and Biliary Tree: Post cholecystectomy. Moderate intra and extrahepatic biliary duct dila tion. Moderate volume gas in the biliary tree. Spleen: Unremarkable Pancreas: The pancreas is normal in appearance without focal lesions or abnormal enhancement. Adrenal Glands: Unremarkable Kidneys: Multiple bilateral renal cysts and hyperdense cysts. Largest on the left measures 11.3 cm. 0.4 cm nonobstructing stone in the upper pole of the right kidney. 0.2 cm nonobstructing stone in the lower pole of the left kidney. No hydronephrosis. Bladder: Unremarkable Bowel: The stomach is grossly normal in appearance. Small bowel and colon are normal in caliber and d istribution. Nonspecific prominence to the appendix measuring 0.8 cm. No periappendiceal inflammatory change. Ascites: Absent Lymphadenopathy: No mesenteric, retroperitoneal or periportal lymphadenopathy. Abdominal Wall and Mesentery: Moderate fat containing umbilical hernia. Vasculature: The visualized abdominal aorta is normal in size and caliber. There is calcified atheros clerotic plaque involving the aorta and its branches. Abdominal and pelvic vessels demonstrate normal enhancement. Pelvic Organs: Unremarkable Musculoskeletal: No aggressive focal bony lesions, acute fractures or dislocation. Degenerative kirkpatrick es of the spine. Scoliosis. IMPRESSION: Multiple bilateral renal cysts and hyperdense cysts measuring up to 11.3 cm in the left kidney. Findi ngs may represent polycystic kidney disease. Bilateral nonobstructing renal stones measuring up to 0.4 cm on the left and 0.2 cm on the right. Nonspecific prominence to the appendix measuring 0.8 cm without periappendiceal inflammatory change. Nonspecific moderate intra and extrahepatic biliary duct dilation with moderate volume gas in the winifred iary tree.
== END 2024-10-23 23:59 | disposition home or self-care (01) ==
LOC: RAD 07:51
PROVIDERS: ATTEND Family Medicine
DX: N28.1 Cyst of kidney, acquired (principal); N20.0 Calculus of kidney; K42.9 Umbilical hernia without obstruction or gangrene; R16.0 Hepatomegaly, not elsewhere classified; N28.89 Other specified disorders of kidney and ureter; R60.9 Edema, unspecified; I70.0 Atherosclerosis of aorta; M47.816 Spondylosis without myelopathy or radiculopathy, lumbar region; M41.86 Other forms of scoliosis, lumbar region; Z90.49 Acquired absence of other specified parts of digestive tract
CPT/HCPCS: 36415; 74176; 80048; Q9967